=== PATIENT | male | born 1940 | race Caucasian/White ===

== ENCOUNTER → 2017-04-19 | Outpatient (CLI) | payer OTHER ==
[2017-04-19 10:43] LABS: APPEARANCE,URINE Clear (CLEAR); BILIRUBIN,URINE Negative (NEGATIVE); COLOR,URINE Yellow (YELLOW); GLUCOSE, URINE (UA) >=1000 mg/dL (NEGATIVE); KETONES,URINE Trace mg/dL (NEGATIVE); LEUKOCYTE ESTERASE ,URINE Negative (NEGATIVE); NITRATE,URINE Negative (NEGATIVE); OCCULT BLOOD,URINE Negative (NEGATIVE); PROTEIN,URINE Negative (NEGATIVE); UROBILINOGEN,URINE 0.2 mg/dL (0.2-1.0)
[2017-04-19 10:54] LABS: BACTERIA,URINE None Seen /HPF (None Seen); RBC,URINE None Seen /HPF (0-1); SQUAMOUS EPITHELIAL CELL,UR Rare /LPF (0-2); WBC,URINE None Seen /HPF (0-1)
== END | disposition home or self-care (01) ==
LOC: EDSEX 09:35 → LAB 09:35
PROVIDERS: ATTEND Urology
DX: Z01.818 Encounter for other preprocedural examination (principal); N52.01 Erectile dysfunction due to arterial insufficiency; T83.590A Infection and inflammatory reaction due to implanted urinary neurostimulation device, initial encounter; X58.XXXA Exposure to other specified factors, initial encounter; Y93.89 Activity, other specified; Y92.89 Other specified places as the place of occurrence of the external cause; Y99.8 Other external cause status
CPT/HCPCS: 81001; 87088; 87641; 93005

== ENCOUNTER → 2019-11-12 | Outpatient (CLI) | payer OTHER ==
[~2019-11-12] MED LIST: AMOX500C2 PO; LEVO500T89 PO; OMEP40CA13 PO
== END | disposition home or self-care (01) ==
LOC: DAH 10:00 → EDSTATUS 11-17 10:10
PROVIDERS: ATTEND Internal Medicine Gastroenterology
DX: Z20.828 Contact with and (suspected) exposure to other viral communicable diseases (principal); R93.3 Abnormal findings on diagnostic imaging of other parts of digestive tract; C22.9 Malignant neoplasm of liver, not specified as primary or secondary
CPT/HCPCS: C9803; U0003

== ENCOUNTER 2019-11-16 01:59 | Inpatient (IN) | payer OTHER ==
[2019-11-16] VITALS (7 sets, daily range): BP systolic 109–120; BP diastolic 62–74
[~2019-11-16] VITALS: Ht 172.7 cm; Wt 70.8 kg
[2019-11-16 02:49] LABS: BASOPHILS % (AUTO) 0.2 % (0.0-5.0); EOSINOPHILS % (AUTO) 0.2 % (0.0-8.0); HEMATOCRIT 43.4 % (42-54); LYMPHOCYTES % (AUTO) 6.4 % (21.0-51.0); MEAN CORPUSCULAR HEMOGLOBIN 28.2 pg (27.0-33.0); MEAN CORPUSCULAR HGB CONC 32.7 g/dL (32.0-36.0); MEAN CORPUSCULAR VOLUME 86.1 fL (79-99); MONOCYTES % (AUTO) 6.4 % (3.0-13.0); NEUTROPHILS % (AUTO) 86.6 % (40.0-77.0); PLATELET COUNT (AUTO) 308 K/uL (130-400); RED BLOOD CELL COUNT(AUTO) 5.04 MIL/uL (4.50-6.20); RED CELL DISTRIBUTION WIDTH 15.1 % (11.0-15.5); WHITE BLOOD COUNT (AUTO) 12.5 K/uL (4.8-10.8)
[2019-11-16 03:00] LABS: CREATININE 1.3 mg/dL (0.5-1.5); POTASSIUM 4.6 mmol/L (3.5-5.1)
[2019-11-16 03:04] LABS: ALBUMIN 2.8 g/dL (3.5-5.0); BILIRUBIN,TOTAL 0.7 mg/dL (0.2-1.0); TOTAL PROTEIN, SERUM 6.6 g/dL (6.0-8.3)
[2019-11-16 03:11] LABS: APPEARANCE,URINE Clear (CLEAR); BILIRUBIN,URINE Moderate (NEGATIVE); COLOR,URINE Dark Yellow (YELLOW); GLUCOSE, URINE (UA) Negative (NEGATIVE); KETONES,URINE 15 mg/dL (NEGATIVE); LEUKOCYTE ESTERASE ,URINE Trace (NEGATIVE); NITRATE,URINE Negative (NEGATIVE); OCCULT BLOOD,URINE Large (NEGATIVE); PROTEIN,URINE POS 2+ mg/dL (NEGATIVE)
[2019-11-16 03:16] LABS: AMMONIA < 10 umol/L (11-32)
[2019-11-16 03:51] LABS: BACTERIA,URINE Rare /HPF (None Seen); MUCUS,URINE Moderate LPF (None Seen); SQUAMOUS EPITHELIAL CELL,UR Moderate /HPF (0-2)
[2019-11-16] MEDS: SODIUM CHLORIDE 0.9% 1000ML 1,000 ML IV SCH ×2 (05:06→15:13)
[2019-11-16] MEDS ORDERED: MAG HYDROX/AL HYDROX/SIMETH ES 30 ML SUSP UDCUP PO PRN (05:15)
[2019-11-16] MEDS ORDERED: ONDANSETRON HCL 4 MG/2 ML VIAL IV PRN (05:15)
[2019-11-16] MEDS ORDERED: DiphenhydrAMINE HCL 50 MG/ML VIAL IV PRN (05:15)
[2019-11-16] MEDS ORDERED: MORPHINE SULFATE 4 MG/1ML SYG IV PRN (05:15)
[2019-11-16] MEDS ORDERED: ZOLPIDEM TARTRATE 5 MG TAB PO PRN (05:15)
[2019-11-16] MEDS ORDERED: MORPHINE SULFATE 2 MG/ML 1ML SYG IV PRN (05:15)
[2019-11-16] MEDS ORDERED: LIDOCAINE HCL 2% VISCOUS 30 ML, MAG HYDROX/AL HYDROX/SIMETH 30 ML, BELLADONNA-PHENOBARB... PO PRN ×3 (05:15)
[2019-11-16] MEDS ORDERED: ACETAMINOPHEN 325 MG TAB PO PRN ×2 (05:15)
[2019-11-16] MEDS ORDERED: DIPHENHYDRAMINE HCL 25 MG CAPSULE PO PRN (05:15)
[2019-11-16] MEDS ORDERED: GUAIFENESIN-DM 200/20 MG 10 ML PO PRN (05:15)
[2019-11-16] MEDS ORDERED: LACTULOSE 20 GM/30 ML UDCUP PO PRN (05:15)
[2019-11-16] MEDS ORDERED: MAG HYDROX/AL HYDROX/SIMETH 30 ML, LIDOCAINE HCL 2% VISCOUS 30 ML, DIPHENHYDRAMINE HCL ... PO PRN ×3 (05:15)
[2019-11-16] MEDS ORDERED: NITROGLYCERIN 0.4 MG SL TAB SL PRN (05:15)
[2019-11-16] MEDS: CEFTRIAXONE SODIUM 1 GM IV SCH (05:15)
[2019-11-16] MEDS ORDERED: ALBUTEROL SULFATE 0.083% 2.5 MG/3 ML INH IH PRN (05:15)
[2019-11-16] MEDS: ALBUMIN (HUMAN) 25% 200 ML IV SCH (05:45)
[2019-11-16] MEDS ORDERED: ALBUMIN (HUMAN) 25% 0 ML IV ONE (05:51)
[2019-11-16] MEDS ORDERED: CEFTRIAXONE SODIUM 1 GM ONE (05:51)
[2019-11-16 06:39] LABS: INR 1.09 (0.85-1.15); PARTIAL THROMBOPLASTIN TIME 28.7 SEC (26.3-35.5); PROTHROMBIN TIME 11.7 SEC (9.6-11.6)
[2019-11-16] MEDS ORDERED: FUROSEMIDE 10 MG/ML 4ML VIAL ONE (08:44)
[2019-11-16] MEDS ORDERED: FAMOTIDINE/PF 20 MG/2 ML VIAL IV ONE (08:45)
[2019-11-16] MEDS: FUROSEMIDE 10 MG/ML 4ML VIAL IVP SCH ×2 (09:00→21:19)
[2019-11-16] MEDS: FAMOTIDINE/PF 20 MG/2 ML VIAL IV SCH ×2 (09:00→21:19)
--- NOTE | 2019-11-16 11:56 | NUR ---
Smoking assessment: Pt states he smoked 1 pk/week for 15 years. Addendum: 11/16/19 at 1158 by MCKINLEY PERALES RT Amended: Links added.
--- NOTE | 2019-11-16 13:59 | NUR ---
CONSULT TO DR ALEXANDER FARMER. WILL SEE PATIENT LATER TODAY
--- NOTE | 2019-11-16 14:00 | NUR ---
DR VEE CONSULT MADE . SAW PATIENT ALREADY
--- NOTE | 2019-11-16 14:00 | NUR ---
CALL PLACED FOR DR CARR ,AWARE OF CONSULT
--- NOTE | 2019-11-16 14:01 | NUR ---
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
[2019-11-16] MEDS ORDERED: OMEP40CA13 PO (16:15)
[2019-11-16] MEDS ORDERED: AMOX500C2 PO (16:15)
[2019-11-16] MEDS ORDERED: LEVO500T89 PO (16:17)
--- NOTE | 2019-11-16 17:30 | NUR ---
post thoracentesis. dressing in place .no signs of bleeding . vital signs stable . 1600ml of yellow colored fluid out .
--- NOTE | 2019-11-16 17:40 | NUR ---
STATUS POST THORACENTESIS AT BEDSIDE WITH DR CARR . PATIENT WITH STABLE VITAL SIGNS . DENIES ANY PAIN OR DISCOMFORT . WILL CONT TO MONITOR
[2019-11-16 18:25] LABS: SPECIMENTYPE,BODY FLUID PLEURAL
[2019-11-16 18:26] LABS: APPEARANCE BODY FLUID SLIGHTLY CLOUDY (CLEAR); BODY FLUID WBC 87 /cu. mm.; COLOR,BODY FLUID DARK YELLOW (LT YELLOW); TOTAL VOLUME,BODY FLUID 1600 mL
[2019-11-16 18:27] LABS: BODY FLUID RBC 335 /cu. mm.
--- NOTE | 2019-11-16 18:30 | NUR ---
PATIENT RESTING .DENIES ANY SHORT OF BREATH OR DISCOMFORT.CALL LIGHT WITHIN REACH
--- NOTE | 2019-11-16 18:51 | NUR ---
CALLED TO DR CARR AND GAVE RESULT OF POST THORACENTESIS ,CXR AT 40 PERCENT PNEUMOTHORAX TO RIGHT SIDE ..NO NEW ORDERS GIVEN
[2019-11-16 19:07] LABS: BF EOSINOPHIL 10 %; BF LYMPHOCYTE 38 %; BF MESOTHELIAL 30 %; BF MONOCYTE 3 %
--- NOTE | 2019-11-16 21:58 | NUR ---
ELEVATED BP ON ASSESSMENT PATIENT BP 150/92, HR 55. REPORTED TO RAMO (JAQUELINE), ORDER GIVEN FOR HYDRALAZINE 10 MG IV. Addendum: 11/17/19 at 0119 by VICKEY SAMULE RN RN ERROR DOCUMENTED ON WRONG PATIENT.
[2019-11-17] VITALS (8 sets, daily range): BP systolic 112–133; BP diastolic 64–76
[2019-11-17] MEDS: CEFTRIAXONE SODIUM 1 GM IV SCH (05:31)
[2019-11-17] MEDS: ALBUMIN (HUMAN) 25% 200 ML IV SCH ×2 (05:44→15:41)
--- NOTE | 2019-11-17 05:50 | NUR ---
DAILY WEIGHT PATIENT REFUSED TO HAVE DAILY WEIGHTS DONE FOR THE SECOND TIME THIS SHIFT. HE STATED HE WILL HAVE IT DONE LATER IN THE MORNING.
[2019-11-17 06:02] LABS: BASOPHILS % (AUTO) 0.2 % (0.0-5.0); EOSINOPHILS % (AUTO) 0.9 % (0.0-8.0); MEAN CORPUSCULAR HEMOGLOBIN 28.6 pg (27.0-33.0); MEAN CORPUSCULAR HGB CONC 33.2 g/dL (32.0-36.0); MEAN CORPUSCULAR VOLUME 86.4 fL (79-99); MONOCYTES % (AUTO) 7.8 % (3.0-13.0); NEUTROPHILS % (AUTO) 82.8 % (40.0-77.0); PLATELET COUNT (AUTO) 227 K/uL (130-400); RED CELL DISTRIBUTION WIDTH 15.2 % (11.0-15.5); WHITE BLOOD COUNT (AUTO) 9.4 K/uL (4.8-10.8)
[2019-11-17 06:22] LABS: ALBUMIN 2.2 g/dL (3.5-5.0); BILIRUBIN,TOTAL 0.4 mg/dL (0.2-1.0); CREATININE 1.3 mg/dL (0.5-1.5); POTASSIUM 3.4 mmol/L (3.5-5.1); TOTAL PROTEIN, SERUM 5.4 g/dL (6.0-8.3)
[2019-11-17] MEDS ORDERED: POTASSIUM CHLORIDE 20 MEQ ERTAB PO PRN (08:30)
[2019-11-17] MEDS ORDERED: LIDOCAINE HCL-MPF 1% 2ML VIAL IJ PRN (08:30)
[2019-11-17] MEDS ORDERED: POTASSIUM CHLORIDE 10% ELIXIR 20 MEQ/15 ML UDCUP PO PRN (08:30)
[2019-11-17] MEDS ORDERED: POTASSIUM CHLORIDE 20MEQ/100ML 100 ML IV PRN ×2 (08:30→15:45)
--- NOTE | 2019-11-17 09:51 | NUR ---
RE: LIVER BIOPSY PATIENT SCHEDULED FOR PARACENTESIS AND LIVER BIOPSY. DR Selene CHUN NOTIFIED AND RESCHEDULED LIVER BIOPSY FOR TOMORROW 11/18/19. PARACENTESIS TO BE DONE TODAY. PROCEDURE OUTCOME REPORTED TO SARANYA THAKUR
--- NOTE | 2019-11-17 11:40 | NUR ---
COVID-19 ASSESSMENT PATIENT COVID-19 NEGATIVE 11/12/19 Addendum: 11/17/19 at 1518 by OSMAR LEPE RN RN Amended: Links added.
--- NOTE | 2019-11-17 12:15 | NUR ---
U/S GD PARACENTESIS PROCEDURE PERFORMED BY DR Selene CHUN. PUNCTURE SITE LUQ AND PATIENT TOLERATED PROCEDURE WELL. TOTAL REMOVED 3 LITERS OF CLOUDY YELLOW FLUID. END OF PROCEDURE AT 1200. CATHETER REMOVED AND DRESSING APPLIED. NO BLEEDING NOTED. REPORT GIVEN TO SARANYA THAKUR AND PATIENT TRANSPORTED TO [facility] VIA BED AT 1215. AAO X3 WITH NO C/O PAIN. SPECIMEN SENT TO LAB.
--- NOTE | 2019-11-17 13:17 | NUR ---
IA- TALKED TO PATIENT AT BEDSIDE. PATIENT WITH NGT TO LIS, UNCOMFORTABLE, STATES INDP, EMPLOYED, NO DME, DRIVES, LIWS, LAST TWO WEEKS, TO WEAK TO WALK, BORROWED W/CHAIR, UNABLE OT DRIVE, NEW DECLINE IN FUNCTION SPOUE TO PROVIDE TRANSPORT AT DISCHARGE BEING WORKED UP FOR MALIGNANCY. CM TO FOLLOW Addendum: 11/17/19 at 1321 by WILLIAMS BERGER RN CM Amended: Links added.
--- NOTE | 2019-11-17 13:34 | NUR ---
RE: LIVER BIOPSY IMAGES OF LIVER TAKEN POST PARACENTESIS. DR Selene CHUN REVIEWED U/S IMAGES AND COMPARED TO PREVIOUS CT IMAGES. DR Selene CHUN STATED NO SAFE ACCESS WITH CT AND LESION NOT SEEN WITH U/S. CANCEL LIVER BIOPSY BY RADIOLOGY. PROCEDURE OUTCOME REPORTED TO SARANYA THAKUR
[2019-11-17] MEDS: FAMOTIDINE/PF 20 MG/2 ML VIAL IV SCH ×2 (15:38→22:02)
--- NOTE | 2019-11-17 15:41 | NUR ---
NOTIFIED DR SHARMA PER PARACENTESIS POST 3 L DOES NOT QUALIFY ALBUMIN. PER MD OK TO JUST MONITOR
[2019-11-17] MEDS ORDERED: LIDOCAINE HCL-MPF 1% 2ML VIAL IV PRN (15:45)
--- NOTE | 2019-11-17 17:01 | NUR ---
DRESING TO PARACENTESIS SITE REMAINS DRY . NO SIGNS OF BLEEDING . WILL CONT TO MONITOR
[2019-11-18] VITALS (7 sets, daily range): BP systolic 111–122; BP diastolic 68–77
[2019-11-18] MEDS: CEFTRIAXONE SODIUM 1 GM IV SCH (06:24)
[2019-11-18 06:26] LABS: BASOPHILS % (AUTO) 0.2 % (0.0-5.0); EOSINOPHILS % (AUTO) 0.6 % (0.0-8.0); HEMATOCRIT 39.6 % (42-54); LYMPHOCYTES % (AUTO) 8.6 % (21.0-51.0); MEAN CORPUSCULAR HEMOGLOBIN 28.1 pg (27.0-33.0); MEAN CORPUSCULAR HGB CONC 32.3 g/dL (32.0-36.0); MEAN CORPUSCULAR VOLUME 86.8 fL (79-99); NEUTROPHILS % (AUTO) 82.3 % (40.0-77.0); PLATELET COUNT (AUTO) 199 K/uL (130-400); RED BLOOD CELL COUNT(AUTO) 4.56 MIL/uL (4.50-6.20); RED CELL DISTRIBUTION WIDTH 15.4 % (11.0-15.5); WHITE BLOOD COUNT (AUTO) 8.8 K/uL (4.8-10.8)
[2019-11-18 06:40] LABS: ALBUMIN 2.1 g/dL (3.5-5.0); BILIRUBIN,TOTAL 0.4 mg/dL (0.2-1.0); CREATININE 1.1 mg/dL (0.5-1.5); POTASSIUM 3.5 mmol/L (3.5-5.1); TOTAL PROTEIN, SERUM 5.1 g/dL (6.0-8.3)
[2019-11-18] MEDS: FAMOTIDINE/PF 20 MG/2 ML VIAL IV SCH ×2 (09:55→20:59)
[2019-11-18] MEDS: LACTATED RINGERS 1000ML 1,000 ML IV SCH (11:15)
--- NOTE | 2019-11-18 14:09 | NUR ---
RD NOTIFICATION - POSSIBLE TPN Pt admitted with Ascites, SBO, Rt-Pleural Effusion. Possible TPN. Recommend Initiate low rate TPN due to risk of Refeeding Syndrome. Recommend initiate Clinimix 5/15% @60mls/hr. Goal rate 80mls/hr (GIR=2.74). Recommendations faxed to [phone]), Called Unit, No answer. NUTRITION NOTE: Pt with poor PO intake x4 days prior to admit. 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 S/p paracentesis. Recommend initiate low TPN rate due to risk of refeeding. RD to monitor for daily advancement as tolerated. RD to continue to monitor. Please notify as additional nutrition concerns arise. Thank you.
--- NOTE | 2019-11-18 23:50 | NUR ---
SHOWERED Pt took a shower,beth well.Ngt to rt nare patent,placement checked via auscultation,connected back to low intermittent wall suction.
[2019-11-19] MEDS: CEFTRIAXONE SODIUM 1 GM IV SCH (02:44)
[2019-11-19] MEDS: ALBUMIN (HUMAN) 25% 200 ML IV SCH (02:44)
[2019-11-19] MEDS: LACTATED RINGERS 1000ML 1,000 ML IV SCH ×2 (02:44→17:40)
[2019-11-19 04:09] VITALS: BP 113/71
[2019-11-19 04:49] LABS: BASOPHILS % (AUTO) 0.1 % (0.0-5.0); EOSINOPHILS % (AUTO) 0.4 % (0.0-8.0); HEMATOCRIT 42.4 % (42-54); LYMPHOCYTES % (AUTO) 7.7 % (21.0-51.0); MEAN CORPUSCULAR HEMOGLOBIN 27.9 pg (27.0-33.0); MEAN CORPUSCULAR HGB CONC 32.1 g/dL (32.0-36.0); MEAN CORPUSCULAR VOLUME 87.1 fL (79-99); MONOCYTES % (AUTO) 8.1 % (3.0-13.0); NEUTROPHILS % (AUTO) 83.5 % (40.0-77.0); PLATELET COUNT (AUTO) 227 K/uL (130-400); RED BLOOD CELL COUNT(AUTO) 4.87 MIL/uL (4.50-6.20); RED CELL DISTRIBUTION WIDTH 15.2 % (11.0-15.5); WHITE BLOOD COUNT (AUTO) 9.4 K/uL (4.8-10.8)
--- NOTE | 2019-11-19 04:50 | NUR ---
REPORT Report given to Guadalupe Bloom.
[2019-11-19 05:37] LABS: ALBUMIN 2.2 g/dL (3.5-5.0); BILIRUBIN,TOTAL 0.4 mg/dL (0.2-1.0); POTASSIUM 3.7 mmol/L (3.5-5.1); TOTAL PROTEIN, SERUM 5.5 g/dL (6.0-8.3)
[2019-11-19] MEDS ORDERED: DIATR MEGLU/DIATRIZOATE SODIUM 30 ML BOTTLE ONE ×3 (07:56→08:27)
--- NOTE | 2019-11-19 08:02 | NUR ---
TAKEN TO XRAY PER TECH FOR SB SERIES, PT BEEN NPO EXCEPT ICE CHIPS ON NIGHTS. VSS
[2019-11-19 09:12] VITALS: BP 119/75
--- NOTE | 2019-11-19 09:50 | NUR ---
BACK FROM XRAY REPORT FROM SLAT BASKET MAKER HELPER SB SERIES COULD NOT BE COMPLETED WILL COME BACK LATER AND TRY TO COMPLETE TEST DO NOT PUT NGT BACK TO SUCTION UNTIL AFTER COMPLETED TEST. BACK IN ROOM VSS, RESTLING QUIETLY
[2019-11-19] MEDS: FAMOTIDINE/PF 20 MG/2 ML VIAL IV SCH ×2 (10:01→20:02)
--- NOTE | 2019-11-19 11:20 | NUR ---
REGULATORY SERVICES CONSULTANT BACK IN ROOM TO COMPLETE SB SERIES AT BEDSIDE, STATED COMPLETED AND COULD RESUME NGT ORDERS. NGT PLACED BACK TO SUCTION AT THIS TIME UNTIL FURTHER ORDERS FROM MD.
[2019-11-19 12:07] VITALS: BP 140/63
[2019-11-19 14:14] LABS: ALBUMIN,BODY FLUID 1.7 g/dL
[2019-11-19 15:00] LABS: APPEARANCE BODY FLUID SLIGHTLY CLOUDY (CLEAR); BODY FLUID WBC 66 /cu. mm.; COLOR,BODY FLUID YELLOW (LT YELLOW); SPECIMENTYPE,BODY FLUID ASCITES; TOTAL VOLUME,BODY FLUID 3600 mL
[2019-11-19 15:01] LABS: BODY FLUID RBC 49 /cu. mm.
[2019-11-19 15:09] LABS: BF LYMPHOCYTE 68 %; BF MESOTHELIAL 24 %
[2019-11-19 16:00] VITALS: BP 160/70
[2019-11-19] MEDS ORDERED: BENZOCAINE/MENTH/CETYLPYRD CL 1 EACH LOZENGE MM PRN (17:45)
--- NOTE | 2019-11-19 19:21 | NUR ---
SPOKE TO DR. BRUSH ON THE PHONE ADVISED BY RN THAT DR. BRUSH SUGGESTED PALLIATIVE CARE.. . RN STATES PT DOES NOT WANT PALLIATIVE CARE, WANTS TO CONTINUE TREATMENT. SPOKE TO PATIENT AT BEDSIDE, WHO STATES IF NO CHEMO OR RADIATION IS AVAIALABLE TO HIM HE "WILL GO ELSEWHERE TO SEEK ALTERATIVE THERAPIES"- STATES WANTS TO BE ABLE TO CONTINUE TO WORK FOR LONG POSSIBLE, CALL TO DR. BRUSH, EXPLAINED WE DON'T REALLY HAVE PALLIATIVE CARE HERE, BUT WE CAN USE THE PALLIATVE CARE ORDER SET BY DR. LEES, BUT... THE PATIENT WANTS SURGERY TO GIVE HIM OPTIONS, AND THEN HE WANTS TO LEAVE HERE TO PURSUE HEALTH/RECOVERY BY OTHER METHODS. DR. BRUSH SAID TO RE CONSULT SURGERY, WITH SUGGESTION OF DIVERTING COLOSTOMY IF ALL AT POSSIBLE ORDER ENTERED-- CLARIFIED TO PATIENT THAT SURGERY HAS TO REALLY LOOK AT THE CT ETC AND DETERMINE IF POSSILBE, MAY NOT BE ABLE TO DO IT. BUT WILL WILL HAVE THEM EVALUATE. UPDATED RNS. TEXT TO DR. YEN TO UPDATE.
[2019-11-19 19:51] VITALS: BP 132/89
[2019-11-19 23:23] VITALS: BP 112/75
[2019-11-20 03:36] VITALS: BP 105/71
[2019-11-20] MEDS: ALBUMIN (HUMAN) 25% 200 ML IV SCH (04:41)
--- NOTE | 2019-11-20 05:13 | NUR ---
Worsened Cxray The BUSINESS ATTORNEY marketing communications leader (LOBITO) was informed of the patient's Cxray worsening per IR. He was also informed at 2312 about the patients HR going up to the 160s when walking around. I was told to monitor the patient. Vitals are stable & he is not showing any S/S of distress.
[2019-11-20 06:37] LABS: CREATININE 1.3 mg/dL (0.5-1.5); MAGNESIUM 2.3 mg/dL (1.80-2.40); POTASSIUM 4.3 mmol/L (3.5-5.1)
[2019-11-20 08:00] VITALS: BP 136/76
--- NOTE | 2019-11-20 10:15 | NUR ---
DR YEN BY BEDSIDE FOR ASSESSMENT. Reports probable NGT removal today and progression of Clear diet.
[2019-11-20] MEDS: LACTATED RINGERS 1000ML 1,000 ML IV SCH (10:18)
[2019-11-20] MEDS: CEFTRIAXONE SODIUM 1 GM IV SCH (10:20)
[2019-11-20] MEDS: FAMOTIDINE/PF 20 MG/2 ML VIAL IV SCH ×2 (10:20→21:13)
[2019-11-20 12:00] VITALS: BP 142/90
--- NOTE | 2019-11-20 15:49 | NUR ---
INITIAL CONTACT Pt resting in bed comfortably. AAOX4, airway patent breathing even and unlabored on room air Right nare NGT noted and clamped. Pt denies nausea. Reports + BM yesterday. Pt awaiting consults this am. Tolerating clear liquids. Denies Nausea/vomiting Addendum: 11/20/19 at 1603 by JANICE STRANGE RN RN WRONG TIME. INPUT FOR 0800
[2019-11-20 16:00] VITALS: BP_SYST 106; BP_SYST 127; BP_DIAS 69; BP_DIAS 72
[2019-11-20 19:38] VITALS: BP 124/83
[2019-11-21] VITALS (7 sets, daily range): BP systolic 107–119; BP diastolic 57–75
[2019-11-21] MEDS: CEFTRIAXONE SODIUM 1 GM IV SCH (04:14)
[2019-11-21] MEDS: ALBUMIN (HUMAN) 25% 200 ML IV SCH (05:45)
[2019-11-21 06:10] LABS: BASOPHILS % (AUTO) 0.1 % (0.0-5.0); EOSINOPHILS % (AUTO) 0.9 % (0.0-8.0); HEMATOCRIT 37.8 % (42-54); LYMPHOCYTES % (AUTO) 6.7 % (21.0-51.0); MEAN CORPUSCULAR HEMOGLOBIN 27.8 pg (27.0-33.0); MEAN CORPUSCULAR HGB CONC 32.8 g/dL (32.0-36.0); MEAN CORPUSCULAR VOLUME 84.8 fL (79-99); MONOCYTES % (AUTO) 11.4 % (3.0-13.0); NEUTROPHILS % (AUTO) 80.3 % (40.0-77.0); PLATELET COUNT (AUTO) 221 K/uL (130-400); RED BLOOD CELL COUNT(AUTO) 4.46 MIL/uL (4.50-6.20); RED CELL DISTRIBUTION WIDTH 15.1 % (11.0-15.5); WHITE BLOOD COUNT (AUTO) 8.5 K/uL (4.8-10.8)
[2019-11-21 06:20] LABS: CREATININE 1.1 mg/dL (0.5-1.5); POTASSIUM 3.2 mmol/L (3.5-5.1)
[2019-11-21] MEDS: FAMOTIDINE/PF 20 MG/2 ML VIAL IV SCH ×2 (08:19→21:00)
[2019-11-21] MEDS: POLYETHYLENE GLYCOL 3350 17 GM POWD.PACK PO SCH (08:23)
[2019-11-21] MEDS: ENOXAPARIN SODIUM 40 MG/0.4 ML SYRINGE SQ SCH (20:00)
[2019-11-22 03:31] VITALS: BP 122/72
[2019-11-22] MEDS: CEFTRIAXONE SODIUM 1 GM IV SCH (05:25)
[2019-11-22 06:00] VITALS: BP 103/63
[2019-11-22 07:37] VITALS: BP 111/72
[2019-11-22] MEDS: FAMOTIDINE/PF 20 MG/2 ML VIAL IV SCH (09:23)
[2019-11-22] MEDS: POLYETHYLENE GLYCOL 3350 17 GM POWD.PACK PO SCH (09:23)
[2019-11-22] MEDS: ENOXAPARIN SODIUM 40 MG/0.4 ML SYRINGE SQ SCH (09:25)
[2019-11-22 10:40] VITALS: BP 108/68
--- NOTE | 2019-11-22 14:13 | NUR ---
DISCHARGE DISCHARGE INSTRUCTIONS GIVEN TO PATIENT, VERBALIZED UNDERSTANDING. PRESCRIPTION FOR OMEPRAZOLE SENT TO [facility]. PATIENT INFORMED TO FOLLOW UP WITH DR MICHELLE, DR MARADIAGA, AND DR COLEMAN. IV DISCONTINUED, TELEPAK REMOVED.
== END 2019-11-22 16:00 | disposition home or self-care (01) | DRG 436 ==
LOC: EDH 01:59 → EDHIP 05:06 → 4BH 09:33
PROVIDERS: ADMIT Internal Medicine; ATTEND Internal Medicine
PROC: 0W993ZZ Drainage of Right Pleural Cavity, Percutaneous Approach (ICD-10-PCS; principal; 2019-11-16)
PROC: 0W9G3ZZ Drainage of Peritoneal Cavity, Percutaneous Approach (ICD-10-PCS; 2019-11-17)
PROC: 0D9670Z Drainage of Stomach with Drainage Device, Via Natural or Artificial Opening (ICD-10-PCS; 2019-11-17)
DX: C25.9 Malignant neoplasm of pancreas, unspecified (principal); C78.7 Secondary malignant neoplasm of liver and intrahepatic bile duct; K56.600 Partial intestinal obstruction, unspecified as to cause; R65.10 Systemic inflammatory response syndrome (SIRS) of non-infectious origin without acute organ dysfunction; R18.0 Malignant ascites; R64 Cachexia; J94.8 Other specified pleural conditions; J93.9 Pneumothorax, unspecified; C34.90 Malignant neoplasm of unspecified part of unspecified bronchus or lung; C76.2 Malignant neoplasm of abdomen; E86.0 Dehydration; Z68.23 Body mass index [BMI] 23.0-23.9, adult; Z87.891 Personal history of nicotine dependence
CPT/HCPCS: 36415; 49083; 71045; 74021; 74176; 74250; 76705; 80048; 80053; 81001; 82040; 82042; 82105; 82140; 82945; 83605; 83615; 83690; 83735; 84132; 84157; 84484; 85025; 85610; 85730; 86316; 87040; 87071; 87116; 87205; 87206; 88112; 88305; 88313; 89051; 93005; 94664; 97039; C1729; G0378; J0696; J1650; J1940; J3480; J3490; J7120; P9046; Q9963